=== PATIENT | male | born 1970 | race Caucasian/White ===

== ENCOUNTER → 2019-01-04 | Outpatient (CLI) | payer BC ==
--- NOTE | 2019-01-04 09:15 | Diagnostic Imaging Report ---
TECHNIQUE: Magnetic resonance imaging of the LEFT KNEE was performed WITHOUT injected contrast. HISTORY: Knee pain COMPARISON: None available. FINDINGS: LIGAMENTS AND TENDONS: ACL: Intact PCL: Intact Collateral ligaments: Intact Iliotibial band: Unremarkable Popliteal tendon: Intact Extensor mechanism: Intact JOINT: Menisci: Medial: Partial medial meniscectomy with small remnant meniscus Lateral: Intact Articular Cartilage: Medial Compartment: Diffuse high-grade cartilage loss Lateral Compartment: Diffuse partial-thickness cartilage loss Patellofemoral Compartment: Diffuse partial-thickness cartilage loss Joint Fluid: Small effusion. BONE: No focal or infiltrative bone marrow replacing abnormality. No acute fracture. SOFT TISSUES: Otherwise, unremarkable. IMPRESSION: Medial meniscus partial meniscectomy with diffuse high-grade cartilage loss in the medial tibiofemoral compartment. No new tear. Signed by: Dr. Marin Verma M.D. on 01/04/2019 9:11 AM
== END ==
LOC: MRI 07:00
PROVIDERS: ATTEND Specialist
DX: S83.262A Peripheral tear of lateral meniscus, current injury, left knee, initial encounter (principal)